=== PATIENT | female | born 1975 | race Caucasian/White ===

== ENCOUNTER 2020-12-23 07:14 | Outpatient (CLI) | payer MEDICARE, MEDICAID, SELFPAY | END 2020-12-23 07:15 | disposition home or self-care (01) | PROVIDERS: PCP Family Medicine; Visit Provider Family Medicine | DX: H90.42 Sensorineural hearing loss, unilateral, left ear, with unrestricted hearing on the contralateral side (principal) | CPT/HCPCS: 92552; 92555; 92567 ==

== ENCOUNTER 2021-12-28 09:17 | Outpatient (CLI) | payer MEDICARE, MEDICAID, SELFPAY | END 2021-12-28 09:18 | disposition home or self-care (01) | LOC: ANHAUDIO 09:19 | PROVIDERS: PCP Family Medicine; Referring Provider Family Medicine; Visit Provider Family Medicine | DX: H91.93 Unspecified hearing loss, bilateral (principal) | CPT/HCPCS: 99199 ==

== ENCOUNTER 2022-02-03 10:39 | Outpatient (CLI) | payer MEDICARE, MEDICAID, SELFPAY | END 2022-02-03 10:40 | disposition home or self-care (01) | LOC: ANHAUDIO 10:40 | PROVIDERS: PCP Family Medicine; Visit Provider Family Medicine | DX: H91.93 Unspecified hearing loss, bilateral (principal) | CPT/HCPCS: 92553; 92555; 92567 ==

== ENCOUNTER 2023-02-13 08:03 | Outpatient (CLI) | payer MEDICARE, MEDICAID, SELFPAY | END 2023-02-13 08:04 | disposition home or self-care (01) | LOC: ANHAUDIO 08:04 | PROVIDERS: PCP Family Medicine; Visit Provider Family Medicine | DX: H90.3 Sensorineural hearing loss, bilateral (principal) | CPT/HCPCS: 92557; 92567 ==

== ENCOUNTER 2024-02-15 08:09 | Outpatient (CLI) | payer MEDICARE, MEDICAID, SELFPAY | END 2024-02-15 08:10 | disposition home or self-care (01) | LOC: ANHAUDIO 08:09 | PROVIDERS: PCP Family Medicine; Visit Provider Family Medicine | DX: H90.42 Sensorineural hearing loss, unilateral, left ear, with unrestricted hearing on the contralateral side (principal) | CPT/HCPCS: 92553; 92555; 92587 ==

== ENCOUNTER 2025-03-10 09:01 | Outpatient (CLI) | payer MEDICARE, MEDICAID, SELFPAY | END 2025-03-10 09:02 | disposition home or self-care (01) | LOC: ANHAUDIO 09:01 | PROVIDERS: PCP Family Medicine; Visit Provider Family Medicine | DX: H90.42 Sensorineural hearing loss, unilateral, left ear, with unrestricted hearing on the contralateral side (principal) | CPT/HCPCS: 92557; 92567 ==